=== PATIENT | female | born 1975 | race African-American/Black ===

== ENCOUNTER 2017-04-15 20:46 | Emergency (ER) | payer MEDICAID ==
[~2017-04-15] VITALS: Ht 167.6 cm; Wt 68.0 kg
[2017-04-15] MEDS ORDERED: NKM (21:00)
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
[2017-04-15 21:17] VITALS: BP 154/92
[2017-04-15] MEDS ORDERED: IBUPROFEN600 MG ORAL (21:45)
[2017-04-15] MEDS ORDERED: ROBAXIN-750750 MG PO (21:45)
[2017-04-15 22:16] VITALS: BP 154/92
--- NOTE | 2017-04-16 10:04 | Diagnostic Imaging Report ---
Indication: Pain Technique: XRAY Chest 1v Comparison: None Findings: Heart size and mediastinal contours are within normal limits given technique. There is no focal consolidation, pneumothorax or pleural effusion. Osseous structures demonstrate no acute abnormality. Impression: No radiographic evidence of acute cardiopulmonary disease.
== END 2017-04-15 22:16 | disposition home or self-care (01) ==
LOC: EMR 21:05
DX: R07.89 Other chest pain (principal); V43.62XA Car passenger injured in collision with other type car in traffic accident, initial encounter; Y92.410 Unspecified street and highway as the place of occurrence of the external cause; Z88.0 Allergy status to penicillin
CPT/HCPCS: 71045; 99283

== ENCOUNTER 2017-10-03 14:17 | Emergency (ER) | payer SELFPAY ==
[~2017-10-03] VITALS: Ht 167.6 cm; Wt 69.9 kg
[~2017-10-03 14:17] MED LIST: IBUPROFEN600 MG ORAL; NKM; ROBAXIN-750750 MG PO
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
[2017-10-03] MEDS ORDERED: IBUPROFEN600 MG ORAL (17:14)
[2017-10-03 17:31] VITALS: BP 154/91
--- NOTE | 2017-10-04 12:15 | Diagnostic Imaging Report ---
Indication: Pain Findings: 2 views of the left humerus were obtained. No acute fractures, malalignment, erosions or periostitis are identified. Bone mineralization is within normal limits. Soft tissues are unremarkable. Impression: No acute injury.
--- NOTE | 2017-10-04 12:17 | Diagnostic Imaging Report ---
Indication: Dyspnea Comparison: None 2 views of the chest obtained. Findings: Cardiomediastinal silhouette and pulmonary vascularity are within normal limits for age. The diaphragmatic contour is smooth and costophrenic angles are sharp. No pleural effusions are identified. The bones are unremarkable. Impression: No acute disease
== END 2017-10-03 17:31 | disposition home or self-care (01) ==
LOC: EMR 17:20
DX: S40.012A Contusion of left shoulder, initial encounter (principal); R07.9 Chest pain, unspecified; Z88.1 Allergy status to other antibiotic agents; Z91.041 Radiographic dye allergy status; V49.9XXA Car occupant (driver) (passenger) injured in unspecified traffic accident, initial encounter; Y92.410 Unspecified street and highway as the place of occurrence of the external cause
CPT/HCPCS: 71046; 99284